=== PATIENT | female | born 1950 | race Asian ===

== ENCOUNTER 2023-02-23 18:28 | Inpatient (IN) | payer MEDICAID ==
[~2023-02-23] VITALS: Ht 154.9 cm; Wt 56.7 kg
[2023-02-23] MEDS ORDERED: levoFLOXacin 750MG/D5W 150 ML IV ONE ×2 (18:45→19:12)
[2023-02-23] MEDS ORDERED: IV NORMAL SALINE 500 ML BAG IV ONE (18:45)
[2023-02-23 19:01] LABS: BASOPHILS # (AUTO) 0.1 K/UL (0.0-0.2); BASOPHILS % (AUTO) 0.9 % (0.0-2.0); EOSINOPHILS # (AUTO) 0.1 K/uL (0.0-0.7); EOSINOPHILS % (AUTO) 0.6 % (0.0-7.0); HEMATOCRIT 42.3 % (31.2-41.9); HEMOGLOBIN 12.4 g/dL (10.9-14.3); LYMPHOCYTES # (AUTO) 3.8 K/uL (0.8-4.8); LYMPHOCYTES % (AUTO) 23.2 % (20.5-51.5); MEAN CORPUSCULAR HEMOGLOBIN 31.5 uug (24.7-32.8); MEAN CORPUSCULAR HGB CONC 29 g/dL (32.3-35.6); MEAN CORPUSCULAR VOLUME 107.3 fL (75.5-95.3); MONOCYTES # (AUTO) 0.7 K/uL (0.1-1.30); MONOCYTES % (AUTO) 4.1 % (0.0-11.0); NEUTROPHILS # (AUTO) 11.5 K/uL (1.8-8.9); NEUTROPHILS % (AUTO) 71.2 % (38.5-71.5); PLATELET COUNT (AUTO) 344 K/uL (179-408); RED BLOOD CELL COUNT(AUTO) 3.95 MIL/uL (3.63-4.92); RED CELL DISTRIBUTION WIDTH 19.5 % (12.3-17.7); WHITE BLOOD COUNT (AUTO) 16.2 K/uL (3.8-11.8)
[2023-02-23 19:07] LABS: DIFFERENTIAL COMMENT 1
[2023-02-23] MEDS ORDERED: IV NORMAL SALINE 1000 ML BAG IV ONE (19:15)
[2023-02-23 19:29] LABS: ALANINE AMINOTRANSFERASE 11 U/L (14-59); ALBUMIN 2.2 g/dL (3.4-5.0); ALKALINE PHOSPHATASE 161 U/L (50-136); ASPARTATE AMINOTRANSFERASE 16 U/L (15-37); BILIRUBIN,DIRECT 0.8 mg/dL (0.0-0.2); BILIRUBIN,TOTAL 1.1 mg/dL (0.2-1.0); CALCIUM 10.5 mg/dL (8.5-10.1); CHLORIDE 102 mmol/L (98-107); CREATININE 1.7 mg/dL (0.6-1.3); GLUCOSE 115 mg/dL (74-106); POTASSIUM 5.9 mmol/L (3.5-5.1); SODIUM SERUM 135 mmol/L (136-145); UREA NITROGEN, BLOOD 34 mg/dL (7-18)
[2023-02-23 19:39] LABS: CARBON DIOXIDE 10 mmol/L (21-32)
[2023-02-23] MEDS ORDERED: APIX2.5T GT (20:23)
[2023-02-23] MEDS ORDERED: MELA1TAB53 GT (20:23)
[2023-02-23] MEDS ORDERED: IPRA0.2S48 NEB (20:23)
[2023-02-23] MEDS ORDERED: DOCU100C36 GT (20:23)
[2023-02-23] MEDS ORDERED: ASCO500C18 GT (20:23)
[2023-02-23] MEDS ORDERED: MAGN400O6 GT (20:23)
[2023-02-23] MEDS ORDERED: CLOP75TA15 GT (20:23)
[2023-02-23] MEDS ORDERED: L. A1TAB16 GT (20:23)
[2023-02-23] MEDS ORDERED: PROP10TA10 GT ×2 (20:23)
[2023-02-23] MEDS ORDERED: POLY119P3 GT (20:23)
[2023-02-23] MEDS ORDERED: ENOX40DI SQ (20:23)
[2023-02-23] MEDS ORDERED: ZINC220T3 GT (20:23)
[2023-02-23] MEDS ORDERED: ATOR20TA GT (20:23)
[2023-02-23] MEDS ORDERED: IPRA0.2S6 NEB (20:23)
[2023-02-23] MEDS ORDERED: CEFE2VIA3 IV (20:23)
[2023-02-23] MEDS ORDERED: QUET50TA GT (20:23)
[2023-02-23] MEDS ORDERED: ACET-73 GT (20:23)
[2023-02-23] MEDS ORDERED: ACET-3117 GT (20:23)
[2023-02-23] MEDS ORDERED: TRAM50TA2 GT (20:23)
[2023-02-23] MEDS ORDERED: METH10TA80 GT (20:23)
[2023-02-23] MEDS ORDERED: ALBU2.5V13 IH ×2 (20:23)
[2023-02-23] MEDS ORDERED: ENOX60DI8 SQ (20:23)
[2023-02-23] MEDS ORDERED: CRAN450T9 GT (20:23)
[2023-02-23] MEDS ORDERED: ONDA4TAB5 GT (20:23)
[2023-02-23] MEDS ORDERED: POLY250017 GT (20:23)
[2023-02-23] MEDS ORDERED: METH10TA7 GT (20:23)
[2023-02-23 21:05] LABS: *BILIRUBIN,URIN NEGATIVE (NEGATIVE); *BLOOD, URINE 3+ (NEGATIVE); *COLOR,URINE YELLOW (YELLOW); *KETONES,URINE TRACE (NEGATIVE); *PROTEIN,URINE 2+ (NEGATIVE); *UROBILINOGEN,URINE 0.2 E.U./dl (NORMAL); LEUKOCYTE ESTERASE ,URINE 1+ (NEGATIVE); NITRITE, URINE POSITIVE (NEGATIVE); PH,URINE 6.5 (5.0-8.0); UGLUCOSE NEGATIVE (NEGATIVE)
[2023-02-23 21:07] LABS: *CLARITY,URINE HAZY (CLEAR)
[2023-02-23 21:29] LABS: ABG BASE EXCESS -17.4 mmol/L (-2.0-2.0); ABG HCO3 8.7 mmol/L (22.0-26.0); ABG PCO2 22.9 mmHg (35.0-48.0); ABG PH 7.199 (7.340-7.440); ABG SITE RIGHT RADIAL; ABG TOTAL HEMOGLOBIN 13.3 G/dL (12.0-16.0); AaDO2 99.8 mmHg; MetHb 0.3 % (0.0-1.5); O2Hb 99.4 % (94.0-97.0); VT, ABG 400 mL
[2023-02-23 21:55] LABS: RBC,URINE TNTC /HPF (0-3); WBC,URINE 50-80 /HPF (0-3)
[2023-02-23 21:56] LABS: BACTERIA,URINE MANY /HPF (NONE SEEN); SQUAMOUS EPITHELIAL CELL,UR FEW /HPF (NONE SEEN)
[2023-02-23] MEDS ORDERED: ALBUTEROL SULFATE 2.5 MG/ 0.5 ML NEBU IH PRN (22:30)
[2023-02-23] MEDS ORDERED: ENOXAPARIN SODIUM 60 MG/0.6 ML DISP.SYRIN SQ ONE ×2 (23:15→23:16)
[2023-02-24] VITALS (17 sets, daily range): BP systolic 75–125; BP diastolic 47–88; TEMP 97.3–98.7; O2SAT 92–98
[2023-02-24] MEDS ORDERED: ALBUTEROL SULFATE 2.5 MG/ 0.5 ML NEBU IH SCH
[2023-02-24] MEDS ORDERED: IPRATROPIUM BROMIDE 0.5 MG/2.5 ML NEBU NEB SCH
[2023-02-24] MEDS ORDERED: MIRALAX 17 GM POWD.PACK GT PRN (02:30)
[2023-02-24] MEDS: ONDANSETRON 4 MG/2 ML VIAL IV PRN (02:32)
[2023-02-24] MEDS: MORPHINE SULFATE 2 MG/1 ML DISP.SYRIN IV PRN (02:40)
[2023-02-24] MEDS ORDERED: PIPERACILLIN SODIUM/TAZOBACTAM 3.375 G in IV DEXTROSE 5% 50 ML IV ONE (03:00)
[2023-02-24] MEDS ORDERED: VANCOMYCIN IV 200 ML ONE (03:04)
[2023-02-24] MEDS ORDERED: VANCOMYCIN HCL 500 MG VIAL ONE (03:04)
[2023-02-24] MEDS ORDERED: PIPERACILLIN/TAZOBACTAM/D5W 50 ML IV ONE (03:05)
[2023-02-24] MEDS ORDERED: VANCOMYCIN IV 1,250 MG in IV DEXTROSE 5% 250 ML IV ONE (03:30)
[2023-02-24 05:14] LABS: BASOPHILS % (AUTO) 0.2 % (0.0-2.0); HEMATOCRIT 36.7 % (31.2-41.9); HEMOGLOBIN 11.5 g/dL (10.9-14.3); LYMPHOCYTES # (AUTO) 0.6 K/uL (0.8-4.8); LYMPHOCYTES % (AUTO) 2.9 % (20.5-51.5); MEAN CORPUSCULAR HEMOGLOBIN 31.7 uug (24.7-32.8); MEAN CORPUSCULAR HGB CONC 31 g/dL (32.3-35.6); MEAN CORPUSCULAR VOLUME 101.3 fL (75.5-95.3); MONOCYTES # (AUTO) 0.8 K/uL (0.1-1.30); MONOCYTES % (AUTO) 4.1 % (0.0-11.0); NEUTROPHILS # (AUTO) 19.3 K/uL (1.8-8.9); NEUTROPHILS % (AUTO) 92.8 % (38.5-71.5); PLATELET COUNT (AUTO) 255 K/uL (179-408); RED BLOOD CELL COUNT(AUTO) 3.62 MIL/uL (3.63-4.92); RED CELL DISTRIBUTION WIDTH 18.7 % (12.3-17.7); WHITE BLOOD COUNT (AUTO) 20.8 K/uL (3.8-11.8)
[2023-02-24 05:35] LABS: DIFFERENTIAL COMMENT 1
[2023-02-24 05:44] LABS: ALANINE AMINOTRANSFERASE 73 U/L (14-59); ALBUMIN 1.9 g/dL (3.4-5.0); ALKALINE PHOSPHATASE 147 U/L (50-136); ASPARTATE AMINOTRANSFERASE 185 U/L (15-37); BILIRUBIN,TOTAL 1.5 mg/dL (0.2-1.0); CALCIUM 9.1 mg/dL (8.5-10.1); CARBON DIOXIDE 14 mmol/L (21-32); CHLORIDE 104 mmol/L (98-107); CHOLESTEROL 125 mg/dL (<200); CREATININE 1.8 mg/dL (0.6-1.3); GLUCOSE 99 mg/dL (74-106); HDL CHOLESTEROL 24 mg/dL (40-60); MAGNESIUM 2.6 mg/dL (1.8-2.4); PHOSPHOROUS 6.8 mg/dL (2.5-4.9); POTASSIUM 4.8 mmol/L (3.5-5.1); SODIUM SERUM 135 mmol/L (136-145); TOTAL PROTEIN, SERUM 6.7 g/dL (6.4-8.2); TRIGLYCERIDES 102 MG/DL (30-150); UREA NITROGEN, BLOOD 42 mg/dL (7-18)
[2023-02-24 05:46] LABS: THYROID STIMULATING HORMONE 0.744 mIU/mL (0.358-3.740)
[2023-02-24] MEDS ORDERED: PIPERACILLIN SODIUM/TAZOBACTAM 3.375 G in IV DEXTROSE 5% 50 ML IV SCH (06:00)
[2023-02-24] MEDS: IPRATROPIUM BROMIDE 0.5 MG/2.5 ML NEBU NEB SCH ×3 (07:35→20:05)
[2023-02-24] MEDS: ALBUTEROL SULFATE 2.5 MG/ 0.5 ML NEBU IH SCH ×3 (07:35→20:05)
[2023-02-24 08:50] LABS: AMMONIA < 10 umol/L (11-32)
[2023-02-24 09:06] LABS: ACETONE, SERUM NEGATIVE (NEGATIVE)
[2023-02-24] MEDS: CLOPIDOGREL 75 MG TABLET GT SCH (09:43)
[2023-02-24] MEDS: ZINC SULFATE 220 MG CAPSULE GT SCH (09:44)
[2023-02-24] MEDS: ACIDOPHILUS/BULGARICUS CHEW TAB GT SCH ×2 (09:44→16:56)
[2023-02-24] MEDS: ASCORBIC ACID 500 MG TABLET GT SCH (09:44)
[2023-02-24] MEDS: PANTOPRAZOLE SODIUM 40 MG VIAL IV SCH (09:45)
[2023-02-24] MEDS: APIXABAN 2.5 MG TABLET GT SCH ×2 (09:46→16:56)
[2023-02-24 10:21] LABS: ABG BASE EXCESS -4.6 mmol/L (-2.0-2.0); ABG HCO3 17.9 mmol/L (22.0-26.0); ABG PCO2 26.1 mmHg (35.0-48.0); ABG PH 7.454 (7.340-7.440); ABG PO2 282.4 mmHg (75.0-100.0); ABG SITE RIGHT RADIAL; ABG TOTAL HEMOGLOBIN 12.4 G/dL (12.0-16.0); AaDO2 99.7 mmHg; COHb 0.3 % (0.0-3.9); MetHb 0.2 % (0.0-1.5); O2Hb 99.4 % (94.0-97.0); VT, ABG 400 mL
[2023-02-24] MEDS: CEFEPIME HCL 2 G in IV DEXTROSE 5% 100 ML IV SCH (10:21)
[2023-02-24] MEDS: METHIMAZOLE 5 MG TABLET GT SCH ×2 (14:00→21:32)
[2023-02-24] MEDS: IV LACTATED RINGERS SOLUTION 1,000 ML IV PRN (17:06)
[2023-02-24] MEDS: QUETIAPINE FUMARATE 25 MG TABLET GT SCH (21:31)
[2023-02-24] MEDS: ATORVASTATIN 20 MG TABLET GT SCH (21:32)
[2023-02-24] MEDS: MELATONIN 3 MG TABLET GT SCH (21:32)
[2023-02-25] VITALS (24 sets, daily range): BP systolic 86–118; BP diastolic 48–70; TEMP 97.2–98.6; O2SAT 98–100
[2023-02-25] MEDS: ALBUTEROL SULFATE 2.5 MG/ 0.5 ML NEBU IH SCH ×4 (01:11→19:45)
[2023-02-25] MEDS: IPRATROPIUM BROMIDE 0.5 MG/2.5 ML NEBU NEB SCH ×4 (01:11→19:45)
[2023-02-25 05:13] LABS: BASOPHILS # (AUTO) 0.1 K/UL (0.0-0.2); BASOPHILS % (AUTO) 0.5 % (0.0-2.0); EOSINOPHILS % (AUTO) 0.1 % (0.0-7.0); HEMATOCRIT 30.8 % (31.2-41.9); HEMOGLOBIN 9.9 g/dL (10.9-14.3); LYMPHOCYTES % (AUTO) 6.9 % (20.5-51.5); MEAN CORPUSCULAR HEMOGLOBIN 31.6 uug (24.7-32.8); MEAN CORPUSCULAR HGB CONC 32 g/dL (32.3-35.6); MEAN CORPUSCULAR VOLUME 98.5 fL (75.5-95.3); MONOCYTES # (AUTO) 0.7 K/uL (0.1-1.30); MONOCYTES % (AUTO) 5.3 % (0.0-11.0); NEUTROPHILS # (AUTO) 12.1 K/uL (1.8-8.9); NEUTROPHILS % (AUTO) 87.2 % (38.5-71.5); PLATELET COUNT (AUTO) 194 K/uL (179-408); RED BLOOD CELL COUNT(AUTO) 3.13 MIL/uL (3.63-4.92); RED CELL DISTRIBUTION WIDTH 18.3 % (12.3-17.7); WHITE BLOOD COUNT (AUTO) 13.9 K/uL (3.8-11.8)
[2023-02-25 05:31] LABS: DIFFERENTIAL COMMENT 1
[2023-02-25 05:38] LABS: CALCIUM 9.1 mg/dL (8.5-10.1); CARBON DIOXIDE 19 mmol/L (21-32); CHLORIDE 107 mmol/L (98-107); CREATININE 1.8 mg/dL (0.6-1.3); GLUCOSE 54 mg/dL (74-106); MAGNESIUM 2.3 mg/dL (1.8-2.4); PHOSPHOROUS 3.8 mg/dL (2.5-4.9); POTASSIUM 3.7 mmol/L (3.5-5.1); SODIUM SERUM 138 mmol/L (136-145); UREA NITROGEN, BLOOD 46 mg/dL (7-18); VANCOMYCIN,RANDOM 22.6 ug/mL (20.0-30.0)
[2023-02-25] MEDS: IV LACTATED RINGERS SOLUTION 1,000 ML IV PRN (06:15)
[2023-02-25] MEDS: METHIMAZOLE 5 MG TABLET GT SCH ×3 (06:22→22:42)
[2023-02-25 07:33] LABS: ABG BASE EXCESS -4.8 mmol/L (-2.0-2.0); ABG HCO3 18.2 mmol/L (22.0-26.0); ABG PCO2 27.6 mmHg (35.0-48.0); ABG PH 7.438 (7.340-7.440); ABG SITE RIGHT RADIAL; ABG TOTAL HEMOGLOBIN 11.1 G/dL (12.0-16.0); AaDO2 99.5 mmHg; COHb 0.3 % (0.0-3.9); MetHb 0.3 % (0.0-1.5); O2Hb 98.7 % (94.0-97.0); VT, ABG 400 mL
[2023-02-25] MEDS: CEFEPIME HCL 2 G in IV DEXTROSE 5% 100 ML IV SCH (09:03)
[2023-02-25] MEDS: CLOPIDOGREL 75 MG TABLET GT SCH (09:03)
[2023-02-25] MEDS: PANTOPRAZOLE SODIUM 40 MG VIAL IV SCH (09:03)
[2023-02-25] MEDS: ASCORBIC ACID 500 MG TABLET GT SCH (09:03)
[2023-02-25] MEDS: ZINC SULFATE 220 MG CAPSULE GT SCH (09:03)
[2023-02-25] MEDS: ACIDOPHILUS/BULGARICUS CHEW TAB GT SCH ×2 (09:03→17:04)
[2023-02-25] MEDS: APIXABAN 2.5 MG TABLET GT SCH (09:05)
[2023-02-25 11:48] LABS: ALBUMIN 1.6 g/dL (3.4-5.0); BILIRUBIN,DIRECT 0.5 mg/dL (0.0-0.2); BILIRUBIN,TOTAL 0.8 mg/dL (0.2-1.0); TOTAL PROTEIN, SERUM 5.7 g/dL (6.4-8.2)
[2023-02-25] MEDS: VANCOMYCIN IV 1,000 MG in IV DEXTROSE 5% 250 ML IV SCH (12:20)
[2023-02-25] MEDS ORDERED: NEPRO 1000 ML GT PRN (16:30)
[2023-02-25] MEDS ORDERED: JEVITY 1.2 1000 ML LIQUID GT PRN ×2 (18:15→18:21)
[2023-02-25] MEDS: MELATONIN 3 MG TABLET GT SCH (20:45)
[2023-02-25] MEDS: QUETIAPINE FUMARATE 25 MG TABLET GT SCH (20:46)
[2023-02-25] MEDS: ATORVASTATIN 20 MG TABLET GT SCH (20:49)
[2023-02-26] VITALS (26 sets, daily range): BP systolic 47–119; BP diastolic 25–78; TEMP 97.5–98.6; O2SAT 77–100
[2023-02-26] MEDS: ALBUTEROL SULFATE 2.5 MG/ 0.5 ML NEBU IH SCH ×4 (01:11→20:10)
[2023-02-26] MEDS: IPRATROPIUM BROMIDE 0.5 MG/2.5 ML NEBU NEB SCH ×4 (01:11→20:10)
[2023-02-26 04:57] LABS: BASOPHILS % (AUTO) 0.4 % (0.0-2.0); EOSINOPHILS # (AUTO) 0.1 K/uL (0.0-0.7); EOSINOPHILS % (AUTO) 0.9 % (0.0-7.0); HEMATOCRIT 31.4 % (31.2-41.9); HEMOGLOBIN 10.2 g/dL (10.9-14.3); LYMPHOCYTES # (AUTO) 0.9 K/uL (0.8-4.8); LYMPHOCYTES % (AUTO) 10.8 % (20.5-51.5); MEAN CORPUSCULAR HEMOGLOBIN 32.3 uug (24.7-32.8); MEAN CORPUSCULAR HGB CONC 33 g/dL (32.3-35.6); MEAN CORPUSCULAR VOLUME 99.2 fL (75.5-95.3); MONOCYTES # (AUTO) 0.8 K/uL (0.1-1.30); MONOCYTES % (AUTO) 9.2 % (0.0-11.0); NEUTROPHILS # (AUTO) 6.4 K/uL (1.8-8.9); NEUTROPHILS % (AUTO) 78.7 % (38.5-71.5); PLATELET COUNT (AUTO) 173 K/uL (179-408); RED BLOOD CELL COUNT(AUTO) 3.16 MIL/uL (3.63-4.92); RED CELL DISTRIBUTION WIDTH 18.8 % (12.3-17.7); WHITE BLOOD COUNT (AUTO) 8.2 K/uL (3.8-11.8)
[2023-02-26 05:21] LABS: ALANINE AMINOTRANSFERASE 127 U/L (14-59); ALBUMIN 1.6 g/dL (3.4-5.0); ALKALINE PHOSPHATASE 103 U/L (50-136); ASPARTATE AMINOTRANSFERASE 78 U/L (15-37); BILIRUBIN,DIRECT 0.5 mg/dL (0.0-0.2); BILIRUBIN,TOTAL 0.9 mg/dL (0.2-1.0); CALCIUM 8.8 mg/dL (8.5-10.1); CARBON DIOXIDE 22 mmol/L (21-32); CHLORIDE 109 mmol/L (98-107); CREATININE 1.8 mg/dL (0.6-1.3); DIFFERENTIAL COMMENT 1; GLUCOSE 79 mg/dL (74-106); MAGNESIUM 2.4 mg/dL (1.8-2.4); PHOSPHOROUS 2.7 mg/dL (2.5-4.9); POTASSIUM 3.3 mmol/L (3.5-5.1); SODIUM SERUM 140 mmol/L (136-145); TOTAL PROTEIN, SERUM 5.8 g/dL (6.4-8.2); UREA NITROGEN, BLOOD 41 mg/dL (7-18)
[2023-02-26] MEDS ORDERED: POTASSIUM CHLORIDE 20 MEQ POWDER PACKET GT ONE (06:00)
[2023-02-26] MEDS: METHIMAZOLE 5 MG TABLET GT SCH ×3 (06:21→21:03)
[2023-02-26 07:09] LABS: ABG BASE EXCESS -7.6 mmol/L (-2.0-2.0); ABG HCO3 16.2 mmol/L (22.0-26.0); ABG PCO2 27.9 mmHg (35.0-48.0); ABG PH 7.382 (7.340-7.440); ABG PO2 232.5 mmHg (75.0-100.0); ABG SITE RIGHT RADIAL; ABG TOTAL HEMOGLOBIN 11.7 G/dL (12.0-16.0); AaDO2 99.5 mmHg; COHb 0.3 % (0.0-3.9); MetHb 0.1 % (0.0-1.5); O2Hb 99.1 % (94.0-97.0); VT, ABG 400 mL
[2023-02-26] MEDS: ASCORBIC ACID 500 MG TABLET GT SCH (09:00)
[2023-02-26] MEDS: ACIDOPHILUS/BULGARICUS CHEW TAB GT SCH ×2 (09:00→17:06)
[2023-02-26] MEDS: CLOPIDOGREL 75 MG TABLET GT SCH (09:00)
[2023-02-26] MEDS: ZINC SULFATE 220 MG CAPSULE GT SCH (09:00)
[2023-02-26] MEDS ORDERED: LORAZEPAM 2 MG/1 ML VIAL IV STA (09:02)
[2023-02-26] MEDS: PANTOPRAZOLE SODIUM 40 MG VIAL IV SCH (13:19)
[2023-02-26] MEDS: CEFEPIME HCL 2 G in IV DEXTROSE 5% 100 ML IV SCH (13:19)
[2023-02-26] MEDS: MICAFUNGIN SODIUM 100 MG in IV NORMAL SALINE 100 ML IV SCH (16:36)
[2023-02-26 17:36] LABS: ALBUMIN 1.6 g/dL (3.4-5.0); ALBUMIN,BODY FLUID 1.1 g/dL
[2023-02-26 17:46] LABS: TOTAL PROTEIN,PERITONEAL FLUID 3.5
[2023-02-26] MEDS ORDERED: IV NS 1000 ML 500 ML IV PRN (19:30)
[2023-02-26] MEDS ORDERED: AMIODARONE HCL IV 450 MG in IV DEXTROSE 5% 250 ML IV PRN ×2 (19:30→19:45)
[2023-02-26] MEDS ORDERED: ALBUMIN HUMAN 25% 50 ML IV ONE (19:30)
[2023-02-26 19:46] LABS: TOTAL VOLUME,BODY FLUID 15 mL; WBC, BODY FLUID 271 /cu. mm (0-200/cu.mm)
[2023-02-26] MEDS: ACETAMINOPHEN 650 MG/20.3 ML LIQUID UDC GT PRN (21:03)
[2023-02-26] MEDS: ATORVASTATIN 20 MG TABLET GT SCH (21:04)
[2023-02-26] MEDS: QUETIAPINE FUMARATE 25 MG TABLET GT SCH (21:04)
[2023-02-26] MEDS: MELATONIN 3 MG TABLET GT SCH (21:04)
[2023-02-26] MEDS: VANCOMYCIN IV 1,000 MG in IV DEXTROSE 5% 250 ML IV SCH (21:05)
[2023-02-27] VITALS (46 sets, daily range): BP systolic 66–141; BP diastolic 40–92; TEMP 97.5–99.3; O2SAT 96–100
[2023-02-27] MEDS ORDERED: NOREPINEPHRINE BITARTRATE 8 MG in IV NORMAL SALINE 242 ML IV PRN (00:30)
[2023-02-27 00:33] LABS: MONOCYTES,BODY FLUID 10 %; POLYNUCLEAR, BODY FLUID 19 % (0-25 %)
[2023-02-27] MEDS: IPRATROPIUM BROMIDE 0.5 MG/2.5 ML NEBU NEB SCH ×4 (00:49→20:42)
[2023-02-27] MEDS: ALBUTEROL SULFATE 2.5 MG/ 0.5 ML NEBU IH SCH ×4 (00:49→20:42)
[2023-02-27] MEDS: NOREPINEPHRINE BITARTRATE 8 MG in IV NORMAL SALINE 242 ML IV PRN ×2 (01:08→22:41)
[2023-02-27 04:48] LABS: BASOPHILS % (AUTO) 0.1 % (0.0-2.0)
[2023-02-27 04:49] LABS: EOSINOPHILS % (AUTO) 0.2 % (0.0-7.0); LYMPHOCYTES # (AUTO) 1.1 K/uL (0.8-4.8); MEAN CORPUSCULAR HEMOGLOBIN 32.1 uug (24.7-32.8); MEAN CORPUSCULAR HGB CONC 32 g/dL (32.3-35.6); MEAN CORPUSCULAR VOLUME 100.3 fL (75.5-95.3); MONOCYTES # (AUTO) 1.2 K/uL (0.1-1.30); MONOCYTES % (AUTO) 8.1 % (0.0-11.0); NEUTROPHILS % (AUTO) 83.6 % (38.5-71.5); PLATELET COUNT (AUTO) 181 K/uL (179-408); RED CELL DISTRIBUTION WIDTH 18.8 % (12.3-17.7); WHITE BLOOD COUNT (AUTO) 14.3 K/uL (3.8-11.8)
[2023-02-27 05:11] LABS: ALANINE AMINOTRANSFERASE 100 U/L (14-59); ALBUMIN 2.1 g/dL (3.4-5.0); ALKALINE PHOSPHATASE 88 U/L (50-136); ASPARTATE AMINOTRANSFERASE 60 U/L (15-37); BILIRUBIN,DIRECT 0.6 mg/dL (0.0-0.2); BILIRUBIN,TOTAL 1.2 mg/dL (0.2-1.0); CALCIUM 8.3 mg/dL (8.5-10.1); CARBON DIOXIDE 19 mmol/L (21-32); CHLORIDE 111 mmol/L (98-107); CREATININE 1.7 mg/dL (0.6-1.3); GLUCOSE 171 mg/dL (74-106); MAGNESIUM 2.3 mg/dL (1.8-2.4); PHOSPHOROUS 2.4 mg/dL (2.5-4.9); POTASSIUM 3.6 mmol/L (3.5-5.1); SODIUM SERUM 139 mmol/L (136-145); TOTAL PROTEIN, SERUM 5.1 g/dL (6.4-8.2); UREA NITROGEN, BLOOD 35 mg/dL (7-18)
[2023-02-27 05:16] LABS: RED BLOOD CELL COUNT(AUTO) 1.91 MIL/uL (3.63-4.92)
[2023-02-27 05:21] LABS: DIFFERENTIAL COMMENT 1; HEMATOCRIT 19.2 % (31.2-41.9); HEMOGLOBIN 6.1 g/dL (10.9-14.3)
[2023-02-27] MEDS: METHIMAZOLE 5 MG TABLET GT SCH ×3 (06:15→21:23)
[2023-02-27 08:06] LABS: HEMATOCRIT 18.4 % (31.2-41.9); HEMOGLOBIN 5.8 g/dL (10.9-14.3)
[2023-02-27] MEDS: PANTOPRAZOLE SODIUM 40 MG VIAL IV SCH (08:14)
[2023-02-27] MEDS: ASCORBIC ACID 500 MG TABLET GT SCH (08:15)
[2023-02-27] MEDS: ZINC SULFATE 220 MG CAPSULE GT SCH (08:15)
[2023-02-27] MEDS: ACIDOPHILUS/BULGARICUS CHEW TAB GT SCH ×2 (08:21→16:47)
[2023-02-27] MEDS: CEFEPIME HCL 2 G in IV DEXTROSE 5% 100 ML IV SCH (10:00)
[2023-02-27] MEDS ORDERED: NEUTRA PHOS PACKET PO ONE (16:00)
[2023-02-27 16:10] LABS: BASOPHILS # (AUTO) 0.1 K/UL (0.0-0.2); BASOPHILS % (AUTO) 0.5 % (0.0-2.0); EOSINOPHILS # (AUTO) 0.1 K/uL (0.0-0.7); HEMATOCRIT 28.7 % (31.2-41.9); HEMOGLOBIN 9.3 g/dL (10.9-14.3); LYMPHOCYTES # (AUTO) 1.4 K/uL (0.8-4.8); LYMPHOCYTES % (AUTO) 11.2 % (20.5-51.5); MEAN CORPUSCULAR HEMOGLOBIN 30.9 uug (24.7-32.8); MEAN CORPUSCULAR HGB CONC 33 g/dL (32.3-35.6); MONOCYTES # (AUTO) 1.5 K/uL (0.1-1.30); NEUTROPHILS # (AUTO) 9.2 K/uL (1.8-8.9); NEUTROPHILS % (AUTO) 75.3 % (38.5-71.5); PLATELET COUNT (AUTO) 170 K/uL (179-408); RED BLOOD CELL COUNT(AUTO) 3.02 MIL/uL (3.63-4.92); RED CELL DISTRIBUTION WIDTH 17.3 % (12.3-17.7); WHITE BLOOD COUNT (AUTO) 12.2 K/uL (3.8-11.8)
[2023-02-27 16:24] LABS: CALCIUM 8.4 mg/dL (8.5-10.1); CARBON DIOXIDE 18 mmol/L (21-32); CHLORIDE 112 mmol/L (98-107); CREATININE 1.6 mg/dL (0.6-1.3); GLUCOSE 167 mg/dL (74-106); POTASSIUM 3.6 mmol/L (3.5-5.1); SODIUM SERUM 141 mmol/L (136-145); UREA NITROGEN, BLOOD 32 mg/dL (7-18)
[2023-02-27 16:42] LABS: DIFFERENTIAL COMMENT 1
[2023-02-27] MEDS: MICAFUNGIN SODIUM 100 MG in IV NORMAL SALINE 100 ML IV SCH (16:42)
[2023-02-27 20:17] LABS: BASOPHILS # (AUTO) 0.1 K/UL (0.0-0.2); BASOPHILS % (AUTO) 0.5 % (0.0-2.0); EOSINOPHILS # (AUTO) 0.1 K/uL (0.0-0.7); EOSINOPHILS % (AUTO) 1.1 % (0.0-7.0); HEMATOCRIT 27.7 % (31.2-41.9); LYMPHOCYTES # (AUTO) 1.4 K/uL (0.8-4.8); LYMPHOCYTES % (AUTO) 12.2 % (20.5-51.5); MEAN CORPUSCULAR HEMOGLOBIN 30.7 uug (24.7-32.8); MEAN CORPUSCULAR HGB CONC 33 g/dL (32.3-35.6); MEAN CORPUSCULAR VOLUME 94.5 fL (75.5-95.3); MONOCYTES # (AUTO) 1.3 K/uL (0.1-1.30); MONOCYTES % (AUTO) 11.6 % (0.0-11.0); NEUTROPHILS # (AUTO) 8.4 K/uL (1.8-8.9); NEUTROPHILS % (AUTO) 74.6 % (38.5-71.5); PLATELET COUNT (AUTO) 161 K/uL (179-408); RED BLOOD CELL COUNT(AUTO) 2.94 MIL/uL (3.63-4.92); RED CELL DISTRIBUTION WIDTH 17.5 % (12.3-17.7); WHITE BLOOD COUNT (AUTO) 11.3 K/uL (3.8-11.8)
[2023-02-27 20:32] LABS: DIFFERENTIAL COMMENT 1
[2023-02-27] MEDS ORDERED: PHYTONADIONE 10 MG/1 ML AMPUL SQ ONE (20:45)
[2023-02-27] MEDS: ACETAMINOPHEN 650 MG/20.3 ML LIQUID UDC GT PRN (20:54)
[2023-02-27] MEDS: ATORVASTATIN 20 MG TABLET GT SCH (20:54)
[2023-02-27] MEDS: QUETIAPINE FUMARATE 25 MG TABLET GT SCH (20:54)
[2023-02-27] MEDS: MELATONIN 3 MG TABLET GT SCH (20:55)
[2023-02-28] VITALS (36 sets, daily range): BP systolic 87–136; BP diastolic 25–101; TEMP 97.3–99.4; O2SAT 99–100
[2023-02-28 00:50] LABS: HEMATOCRIT 25.3 % (31.2-41.9); HEMOGLOBIN 8.3 g/dL (10.9-14.3)
[2023-02-28] MEDS: IPRATROPIUM BROMIDE 0.5 MG/2.5 ML NEBU NEB SCH ×4 (01:18→21:17)
[2023-02-28] MEDS: ALBUTEROL SULFATE 2.5 MG/ 0.5 ML NEBU IH SCH ×4 (01:19→21:17)
[2023-02-28] MEDS: METHIMAZOLE 5 MG TABLET GT SCH ×3 (06:11→21:47)
[2023-02-28 06:51] LABS: BASOPHILS % (AUTO) 0.3 % (0.0-2.0); EOSINOPHILS # (AUTO) 0.1 K/uL (0.0-0.7); EOSINOPHILS % (AUTO) 1.7 % (0.0-7.0); HEMATOCRIT 25.8 % (31.2-41.9); HEMOGLOBIN 8.6 g/dL (10.9-14.3); LYMPHOCYTES # (AUTO) 1.3 K/uL (0.8-4.8); LYMPHOCYTES % (AUTO) 15.3 % (20.5-51.5); MEAN CORPUSCULAR HGB CONC 33 g/dL (32.3-35.6); MEAN CORPUSCULAR VOLUME 96.2 fL (75.5-95.3); MONOCYTES # (AUTO) 1.1 K/uL (0.1-1.30); NEUTROPHILS # (AUTO) 5.8 K/uL (1.8-8.9); NEUTROPHILS % (AUTO) 69.7 % (38.5-71.5); PLATELET COUNT (AUTO) 138 K/uL (179-408); RED BLOOD CELL COUNT(AUTO) 2.68 MIL/uL (3.63-4.92); WHITE BLOOD COUNT (AUTO) 8.4 K/uL (3.8-11.8)
[2023-02-28 07:19] LABS: DIFFERENTIAL COMMENT 1
[2023-02-28 07:31] LABS: ALANINE AMINOTRANSFERASE 82 U/L (14-59); ALKALINE PHOSPHATASE 97 U/L (50-136); ASPARTATE AMINOTRANSFERASE 29 U/L (15-37); BILIRUBIN,DIRECT 0.6 mg/dL (0.0-0.2); BILIRUBIN,TOTAL 1.2 mg/dL (0.2-1.0); CALCIUM 8.6 mg/dL (8.5-10.1); CARBON DIOXIDE 18 mmol/L (21-32); CHLORIDE 113 mmol/L (98-107); CREATININE 1.4 mg/dL (0.6-1.3); GLUCOSE 104 mg/dL (74-106); MAGNESIUM 2.3 mg/dL (1.8-2.4); PHOSPHOROUS 2.7 mg/dL (2.5-4.9); POTASSIUM 3.4 mmol/L (3.5-5.1); SODIUM SERUM 143 mmol/L (136-145); TOTAL PROTEIN, SERUM 5.6 g/dL (6.4-8.2); UREA NITROGEN, BLOOD 27 mg/dL (7-18)
[2023-02-28] MEDS: ACIDOPHILUS/BULGARICUS CHEW TAB GT SCH ×2 (08:35→16:15)
[2023-02-28] MEDS: ZINC SULFATE 220 MG CAPSULE GT SCH (08:35)
[2023-02-28] MEDS: PANTOPRAZOLE ORAL SUSPENSION 40 MG SUSPDR.PKT GT SCH (08:35)
[2023-02-28] MEDS: ASCORBIC ACID 500 MG TABLET GT SCH (08:35)
[2023-02-28 10:40] LABS: HEMOGLOBIN 7.9 g/dL (10.9-14.3)
[2023-02-28] MEDS: CEFEPIME HCL 2 G in IV DEXTROSE 5% 100 ML IV SCH (11:23)
[2023-02-28 13:38] LABS: HEMATOCRIT 23.6 % (31.2-41.9); HEMOGLOBIN 7.8 g/dL (10.9-14.3)
[2023-02-28] MEDS ORDERED: POTASSIUM CHLORIDE 20 MEQ POWDER PACKET GT ONE (14:00)
[2023-02-28] MEDS: MICAFUNGIN SODIUM 100 MG in IV NORMAL SALINE 100 ML IV SCH (16:12)
[2023-02-28 17:37] LABS: HEMATOCRIT 24.9 % (31.2-41.9); HEMOGLOBIN 8.2 g/dL (10.9-14.3)
[2023-02-28] MEDS: MELATONIN 3 MG TABLET GT SCH (21:46)
[2023-02-28] MEDS: QUETIAPINE FUMARATE 25 MG TABLET GT SCH (21:46)
[2023-02-28] MEDS: ATORVASTATIN 20 MG TABLET GT SCH (21:47)
[2023-03-01] VITALS (24 sets, daily range): BP systolic 97–124; BP diastolic 42–67; TEMP 97.5–98.9; O2SAT 97–100
[2023-03-01] MEDS: IPRATROPIUM BROMIDE 0.5 MG/2.5 ML NEBU NEB SCH ×4 (02:05→21:26)
[2023-03-01] MEDS: ALBUTEROL SULFATE 2.5 MG/ 0.5 ML NEBU IH SCH ×4 (02:05→21:27)
[2023-03-01 05:12] LABS: BASOPHILS % (AUTO) 0.5 % (0.0-2.0); EOSINOPHILS # (AUTO) 0.1 K/uL (0.0-0.7); EOSINOPHILS % (AUTO) 1.4 % (0.0-7.0); HEMATOCRIT 25.8 % (31.2-41.9); HEMOGLOBIN 8.5 g/dL (10.9-14.3); LYMPHOCYTES # (AUTO) 0.8 K/uL (0.8-4.8); LYMPHOCYTES % (AUTO) 13.5 % (20.5-51.5); MEAN CORPUSCULAR HEMOGLOBIN 31.7 uug (24.7-32.8); MEAN CORPUSCULAR HGB CONC 33 g/dL (32.3-35.6); MEAN CORPUSCULAR VOLUME 96.1 fL (75.5-95.3); MONOCYTES # (AUTO) 0.6 K/uL (0.1-1.30); MONOCYTES % (AUTO) 10.2 % (0.0-11.0); NEUTROPHILS # (AUTO) 4.3 K/uL (1.8-8.9); NEUTROPHILS % (AUTO) 74.4 % (38.5-71.5); PLATELET COUNT (AUTO) 110 K/uL (179-408); RED BLOOD CELL COUNT(AUTO) 2.68 MIL/uL (3.63-4.92); RED CELL DISTRIBUTION WIDTH 17.9 % (12.3-17.7); WHITE BLOOD COUNT (AUTO) 5.8 K/uL (3.8-11.8)
[2023-03-01 05:17] LABS: DIFFERENTIAL COMMENT 1
[2023-03-01 05:26] LABS: CALCIUM 8.8 mg/dL (8.5-10.1); CARBON DIOXIDE 18 mmol/L (21-32); CHLORIDE 116 mmol/L (98-107); CREATININE 1.2 mg/dL (0.6-1.3); GLUCOSE 66 mg/dL (74-106); MAGNESIUM 2.1 mg/dL (1.8-2.4); PHOSPHOROUS 2.5 mg/dL (2.5-4.9); POTASSIUM 3.7 mmol/L (3.5-5.1); SODIUM SERUM 145 mmol/L (136-145); UREA NITROGEN, BLOOD 20 mg/dL (7-18)
[2023-03-01] MEDS: METHIMAZOLE 5 MG TABLET GT SCH ×3 (06:32→21:38)
[2023-03-01 06:33] LABS: ABG BASE EXCESS -7.3 mmol/L (-2.0-2.0); ABG PCO2 25.7 mmHg (35.0-48.0); ABG PH 7.413 (7.340-7.440); ABG PO2 126.1 mmHg (75.0-100.0); ABG TOTAL HEMOGLOBIN 9.7 G/dL (12.0-16.0); AaDO2 98.6 mmHg; COHb 0.3 % (0.0-3.9); MetHb 0.3 % (0.0-1.5); O2Hb 97.8 % (94.0-97.0); VT, ABG 400 mL
[2023-03-01] MEDS: ACIDOPHILUS/BULGARICUS CHEW TAB GT SCH ×2 (08:53→16:33)
[2023-03-01] MEDS: ASCORBIC ACID 500 MG TABLET GT SCH (08:53)
[2023-03-01] MEDS: ZINC SULFATE 220 MG CAPSULE GT SCH (08:53)
[2023-03-01] MEDS: PANTOPRAZOLE ORAL SUSPENSION 40 MG SUSPDR.PKT GT SCH (08:54)
[2023-03-01] MEDS: CEFEPIME HCL 2 G in IV DEXTROSE 5% 100 ML IV SCH (09:19)
[2023-03-01] MEDS: MICAFUNGIN SODIUM 100 MG in IV NORMAL SALINE 100 ML IV SCH (15:01)
[2023-03-01] MEDS: ATORVASTATIN 20 MG TABLET GT SCH (21:38)
[2023-03-01] MEDS: QUETIAPINE FUMARATE 25 MG TABLET GT SCH (21:39)
[2023-03-01] MEDS: MELATONIN 3 MG TABLET GT SCH (21:39)
[2023-03-02] VITALS (23 sets, daily range): BP systolic 107–123; BP diastolic 47–79; TEMP 97.4–98.4; O2SAT 100
[2023-03-02] MEDS: IPRATROPIUM BROMIDE 0.5 MG/2.5 ML NEBU NEB SCH ×4 (00:22→19:51)
[2023-03-02] MEDS: ALBUTEROL SULFATE 2.5 MG/ 0.5 ML NEBU IH SCH ×4 (00:22→19:51)
[2023-03-02] MEDS ORDERED: IV NORMAL SALINE 250 ML IV PRN (02:15)
[2023-03-02 05:06] LABS: BASOPHILS % (AUTO) 0.5 % (0.0-2.0); EOSINOPHILS # (AUTO) 0.1 K/uL (0.0-0.7); HEMATOCRIT 27.4 % (31.2-41.9); HEMOGLOBIN 8.9 g/dL (10.9-14.3); LYMPHOCYTES # (AUTO) 0.7 K/uL (0.8-4.8); MEAN CORPUSCULAR HGB CONC 33 g/dL (32.3-35.6); MEAN CORPUSCULAR VOLUME 98.4 fL (75.5-95.3); MONOCYTES # (AUTO) 0.5 K/uL (0.1-1.30); NEUTROPHILS # (AUTO) 4.4 K/uL (1.8-8.9); NEUTROPHILS % (AUTO) 76.5 % (38.5-71.5); PLATELET COUNT (AUTO) 122 K/uL (179-408); RED BLOOD CELL COUNT(AUTO) 2.79 MIL/uL (3.63-4.92); WHITE BLOOD COUNT (AUTO) 5.7 K/uL (3.8-11.8)
[2023-03-02 05:18] LABS: DIFFERENTIAL COMMENT 1
[2023-03-02 05:26] LABS: CARBON DIOXIDE 16 mmol/L (21-32); CHLORIDE 116 mmol/L (98-107); CREATININE 1.1 mg/dL (0.6-1.3); GLUCOSE 55 mg/dL (74-106); MAGNESIUM 1.9 mg/dL (1.8-2.4); PHOSPHOROUS 2.3 mg/dL (2.5-4.9); POTASSIUM 3.6 mmol/L (3.5-5.1); SODIUM SERUM 145 mmol/L (136-145); UREA NITROGEN, BLOOD 18 mg/dL (7-18)
[2023-03-02 05:31] LABS: CALCIUM 8.5 mg/dL (8.5-10.1)
[2023-03-02] MEDS: METHIMAZOLE 5 MG TABLET GT SCH ×3 (05:36→22:02)
[2023-03-02] MEDS: PANTOPRAZOLE ORAL SUSPENSION 40 MG SUSPDR.PKT GT SCH (06:13)
[2023-03-02] MEDS: ACIDOPHILUS/BULGARICUS CHEW TAB GT SCH ×2 (08:33→16:07)
[2023-03-02] MEDS: ZINC SULFATE 220 MG CAPSULE GT SCH (08:33)
[2023-03-02] MEDS: ASCORBIC ACID 500 MG TABLET GT SCH (08:34)
[2023-03-02] MEDS ORDERED: JEVITY 1.2 1000 ML LIQUID GT PRN ×2 (10:15→14:36)
[2023-03-02] MEDS: CEFEPIME HCL 2 G in IV DEXTROSE 5% 100 ML IV SCH (10:16)
[2023-03-02] MEDS ORDERED: NEUTRA PHOS PACKET PO ONE (15:40)
[2023-03-02] MEDS ORDERED: NEUTRA PHOS PACKET GT ONE (15:40)
[2023-03-02] MEDS: MICAFUNGIN SODIUM 100 MG in IV NORMAL SALINE 100 ML IV SCH (15:52)
[2023-03-02] MEDS: ATORVASTATIN 20 MG TABLET GT SCH (20:43)
[2023-03-02] MEDS: QUETIAPINE FUMARATE 25 MG TABLET GT SCH (20:43)
[2023-03-02] MEDS: MELATONIN 3 MG TABLET GT SCH (20:44)
[2023-03-03] VITALS (23 sets, daily range): BP systolic 93–134; BP diastolic 46–85; TEMP 97.5–98.5; O2SAT 100
[2023-03-03] MEDS: IPRATROPIUM BROMIDE 0.5 MG/2.5 ML NEBU NEB SCH ×4 (01:30→19:44)
[2023-03-03] MEDS: ALBUTEROL SULFATE 2.5 MG/ 0.5 ML NEBU IH SCH ×4 (01:30→19:44)
[2023-03-03 05:03] LABS: BASOPHILS # (AUTO) 0.1 K/UL (0.0-0.2); BASOPHILS % (AUTO) 0.7 % (0.0-2.0); EOSINOPHILS # (AUTO) 0.1 K/uL (0.0-0.7); EOSINOPHILS % (AUTO) 0.9 % (0.0-7.0); HEMATOCRIT 29.2 % (31.2-41.9); HEMOGLOBIN 9.4 g/dL (10.9-14.3); LYMPHOCYTES # (AUTO) 1.2 K/uL (0.8-4.8); LYMPHOCYTES % (AUTO) 14.8 % (20.5-51.5); MEAN CORPUSCULAR HEMOGLOBIN 31.8 uug (24.7-32.8); MEAN CORPUSCULAR HGB CONC 32 g/dL (32.3-35.6); MEAN CORPUSCULAR VOLUME 98.3 fL (75.5-95.3); MONOCYTES # (AUTO) 0.6 K/uL (0.1-1.30); MONOCYTES % (AUTO) 7.9 % (0.0-11.0); NEUTROPHILS # (AUTO) 6.2 K/uL (1.8-8.9); NEUTROPHILS % (AUTO) 75.7 % (38.5-71.5); PLATELET COUNT (AUTO) 150 K/uL (179-408); RED BLOOD CELL COUNT(AUTO) 2.96 MIL/uL (3.63-4.92); RED CELL DISTRIBUTION WIDTH 20.7 % (12.3-17.7); WHITE BLOOD COUNT (AUTO) 8.2 K/uL (3.8-11.8)
[2023-03-03 05:05] LABS: DIFFERENTIAL COMMENT 1
[2023-03-03 05:17] LABS: CALCIUM 8.4 mg/dL (8.5-10.1); CARBON DIOXIDE 20 mmol/L (21-32); CHLORIDE 115 mmol/L (98-107); CREATININE 1.2 mg/dL (0.6-1.3); GLUCOSE 145 mg/dL (74-106); MAGNESIUM 1.9 mg/dL (1.8-2.4); PHOSPHOROUS 2.3 mg/dL (2.5-4.9); POTASSIUM 3.8 mmol/L (3.5-5.1); SODIUM SERUM 145 mmol/L (136-145); UREA NITROGEN, BLOOD 19 mg/dL (7-18)
[2023-03-03] MEDS: METHIMAZOLE 5 MG TABLET GT SCH ×3 (06:19→21:00)
[2023-03-03] MEDS: PANTOPRAZOLE ORAL SUSPENSION 40 MG SUSPDR.PKT GT SCH (06:19)
[2023-03-03] MEDS ORDERED: POTASSIUM CHLORIDE 20 MEQ POWDER PACKET GT ONE (07:45)
[2023-03-03] MEDS ORDERED: METOPROLOL SUCCINATE XL 25 MG TAB.SR.24H PO SCH ×2 (09:00)
[2023-03-03] MEDS: ZINC SULFATE 220 MG CAPSULE GT SCH (09:14)
[2023-03-03] MEDS: ASCORBIC ACID 500 MG TABLET GT SCH (09:15)
[2023-03-03] MEDS: METOPROLOL TARTRATE 25 MG TABLET GT SCH ×2 (09:15→20:32)
[2023-03-03] MEDS: ACIDOPHILUS/BULGARICUS CHEW TAB GT SCH ×2 (09:17→16:48)
[2023-03-03] MEDS: MAGNESIUM SULFATE/D5W 100 ML IV SCH ×2 (09:18→10:19)
[2023-03-03] MEDS: CEFEPIME HCL 2 G in IV DEXTROSE 5% 100 ML IV SCH (09:19)
[2023-03-03] MEDS ORDERED: NEUTRA PHOS PACKET GT ONE (15:15)
[2023-03-03] MEDS: MICAFUNGIN SODIUM 100 MG in IV NORMAL SALINE 100 ML IV SCH (15:17)
[2023-03-03] MEDS: MORPHINE SULFATE 2 MG/1 ML DISP.SYRIN IV PRN (15:18)
[2023-03-03] MEDS: LORAZEPAM 0.5 MG TABLET GT PRN (16:49)
[2023-03-03] MEDS: QUETIAPINE FUMARATE 25 MG TABLET GT SCH (20:31)
[2023-03-03] MEDS: MELATONIN 3 MG TABLET GT SCH (20:33)
[2023-03-03] MEDS: ATORVASTATIN 20 MG TABLET GT SCH (20:33)
[2023-03-03] MEDS ORDERED: CEFEPIME HCL 2 G in IV DEXTROSE 5% 100 ML IV SCH (22:00)
[2023-03-04] VITALS (14 sets, daily range): BP systolic 93–121; BP diastolic 31–66; TEMP 97.4–98; O2SAT 100
[2023-03-04] MEDS: IPRATROPIUM BROMIDE 0.5 MG/2.5 ML NEBU NEB SCH ×4 (00:51→21:22)
[2023-03-04] MEDS: ALBUTEROL SULFATE 2.5 MG/ 0.5 ML NEBU IH SCH ×4 (00:51→21:23)
[2023-03-04 05:15] LABS: BASOPHILS % (AUTO) 0.6 % (0.0-2.0); EOSINOPHILS % (AUTO) 0.5 % (0.0-7.0); HEMATOCRIT 27.2 % (31.2-41.9); HEMOGLOBIN 8.9 g/dL (10.9-14.3); LYMPHOCYTES # (AUTO) 0.8 K/uL (0.8-4.8); LYMPHOCYTES % (AUTO) 11.2 % (20.5-51.5); MEAN CORPUSCULAR HEMOGLOBIN 32.5 uug (24.7-32.8); MEAN CORPUSCULAR HGB CONC 33 g/dL (32.3-35.6); MEAN CORPUSCULAR VOLUME 99.6 fL (75.5-95.3); MONOCYTES # (AUTO) 0.6 K/uL (0.1-1.30); MONOCYTES % (AUTO) 8.2 % (0.0-11.0); NEUTROPHILS # (AUTO) 5.4 K/uL (1.8-8.9); NEUTROPHILS % (AUTO) 79.5 % (38.5-71.5); PLATELET COUNT (AUTO) 142 K/uL (179-408); RED BLOOD CELL COUNT(AUTO) 2.73 MIL/uL (3.63-4.92); WHITE BLOOD COUNT (AUTO) 6.8 K/uL (3.8-11.8)
[2023-03-04 05:30] LABS: CALCIUM 8.8 mg/dL (8.5-10.1); CARBON DIOXIDE 19 mmol/L (21-32); CHLORIDE 117 mmol/L (98-107); CREATININE 1.1 mg/dL (0.6-1.3); DIFFERENTIAL COMMENT 1; GLUCOSE 105 mg/dL (74-106); MAGNESIUM 2.4 mg/dL (1.8-2.4); POTASSIUM 4.5 mmol/L (3.5-5.1); RED CELL DISTRIBUTION WIDTH 19.1 % (12.3-17.7); SODIUM SERUM 145 mmol/L (136-145); UREA NITROGEN, BLOOD 19 mg/dL (7-18)
[2023-03-04] MEDS: METHIMAZOLE 5 MG TABLET GT SCH ×3 (05:35→21:30)
[2023-03-04] MEDS: PANTOPRAZOLE ORAL SUSPENSION 40 MG SUSPDR.PKT GT SCH (05:35)
[2023-03-04] MEDS: ACIDOPHILUS/BULGARICUS CHEW TAB GT SCH ×2 (08:14→16:39)
[2023-03-04] MEDS: ASCORBIC ACID 500 MG TABLET GT SCH (08:15)
[2023-03-04] MEDS: METOPROLOL TARTRATE 25 MG TABLET GT SCH ×2 (08:15→21:10)
[2023-03-04] MEDS: ZINC SULFATE 220 MG CAPSULE GT SCH (08:16)
[2023-03-04] MEDS: ONDANSETRON 4 MG/2 ML VIAL IV PRN (09:29)
[2023-03-04] MEDS: VITAL AF 1.2 1,000 ML LIQUID GT PRN (11:19)
[2023-03-04] MEDS: MICAFUNGIN SODIUM 100 MG in IV NORMAL SALINE 100 ML IV SCH (15:41)
[2023-03-04] MEDS: ATORVASTATIN 20 MG TABLET GT SCH (21:08)
[2023-03-04] MEDS: QUETIAPINE FUMARATE 25 MG TABLET GT SCH (21:09)
[2023-03-04] MEDS: MELATONIN 3 MG TABLET GT SCH (21:10)
[2023-03-05] VITALS: BP 101/60; TEMP 97.8; O2SAT 100
[2023-03-05] MEDS: IPRATROPIUM BROMIDE 0.5 MG/2.5 ML NEBU NEB SCH ×4 (02:26→19:09)
[2023-03-05] MEDS: ALBUTEROL SULFATE 2.5 MG/ 0.5 ML NEBU IH SCH ×4 (02:27→19:09)
[2023-03-05] MEDS: LORAZEPAM 0.5 MG TABLET GT PRN ×2 (02:45→14:59)
[2023-03-05 04:00] VITALS: BP 97/56; TEMP 98; O2SAT 100
[2023-03-05 05:02] LABS: BASOPHILS % (AUTO) 0.7 % (0.0-2.0); EOSINOPHILS % (AUTO) 0.7 % (0.0-7.0); HEMATOCRIT 28.6 % (31.2-41.9); HEMOGLOBIN 9.6 g/dL (10.9-14.3); LYMPHOCYTES # (AUTO) 0.7 K/uL (0.8-4.8); LYMPHOCYTES % (AUTO) 11.1 % (20.5-51.5); MEAN CORPUSCULAR HEMOGLOBIN 33.7 uug (24.7-32.8); MEAN CORPUSCULAR HGB CONC 33 g/dL (32.3-35.6); MEAN CORPUSCULAR VOLUME 100.9 fL (75.5-95.3); MONOCYTES # (AUTO) 0.6 K/uL (0.1-1.30); MONOCYTES % (AUTO) 8.9 % (0.0-11.0); NEUTROPHILS # (AUTO) 5.1 K/uL (1.8-8.9); NEUTROPHILS % (AUTO) 78.6 % (38.5-71.5); PLATELET COUNT (AUTO) 162 K/uL (179-408); RED BLOOD CELL COUNT(AUTO) 2.83 MIL/uL (3.63-4.92); RED CELL DISTRIBUTION WIDTH 23.6 % (12.3-17.7); WHITE BLOOD COUNT (AUTO) 6.5 K/uL (3.8-11.8)
[2023-03-05 05:31] LABS: DIFFERENTIAL COMMENT 1
[2023-03-05 05:33] LABS: CALCIUM 8.9 mg/dL (8.5-10.1); CARBON DIOXIDE 20 mmol/L (21-32); CHLORIDE 116 mmol/L (98-107); CREATININE 1.1 mg/dL (0.6-1.3); GLUCOSE 132 mg/dL (74-106); POTASSIUM 4.4 mmol/L (3.5-5.1); SODIUM SERUM 142 mmol/L (136-145); UREA NITROGEN, BLOOD 23 mg/dL (7-18)
[2023-03-05 05:36] LABS: MAGNESIUM 2.3 mg/dL (1.8-2.4); PHOSPHOROUS 2.4 mg/dL (2.5-4.9)
[2023-03-05 06:27] LABS: ABG BASE EXCESS -7.4 mmol/L (-2.0-2.0); ABG HCO3 16.2 mmol/L (22.0-26.0); ABG PCO2 26.8 mmHg (35.0-48.0); ABG PH 7.398 (7.340-7.440); ABG PO2 130.8 mmHg (75.0-100.0); ABG SITE RIGHT RADIAL; AaDO2 98.7 mmHg; COHb 0.4 % (0.0-3.9); MetHb 0.2 % (0.0-1.5); O2Hb 98.2 % (94.0-97.0); VT, ABG 400 mL
[2023-03-05] MEDS: PANTOPRAZOLE ORAL SUSPENSION 40 MG SUSPDR.PKT GT SCH (06:32)
[2023-03-05] MEDS: METHIMAZOLE 5 MG TABLET GT SCH ×3 (06:33→21:51)
[2023-03-05 08:00] VITALS: BP 118/75; TEMP 97.8; O2SAT 99
[2023-03-05] MEDS: ZINC SULFATE 220 MG CAPSULE GT SCH (09:40)
[2023-03-05] MEDS: ASCORBIC ACID 500 MG TABLET GT SCH (09:40)
[2023-03-05] MEDS: METOPROLOL TARTRATE 25 MG TABLET GT SCH ×2 (09:41→21:16)
[2023-03-05] MEDS: ACIDOPHILUS/BULGARICUS CHEW TAB GT SCH ×2 (09:42→16:39)
[2023-03-05] MEDS: ONDANSETRON 4 MG/2 ML VIAL IV PRN ×2 (12:02→18:50)
[2023-03-05 12:04] VITALS: BP 102/55; TEMP 99.2; O2SAT 99
[2023-03-05] MEDS: MICAFUNGIN SODIUM 100 MG in IV NORMAL SALINE 100 ML IV SCH (15:35)
[2023-03-05] MEDS ORDERED: NEUTRA PHOS PACKET GT ONE (15:50)
[2023-03-05] MEDS ORDERED: NEUTRA PHOS PACKET PO ONE (15:50)
[2023-03-05 16:00] VITALS: BP 92/54; TEMP 98.5; O2SAT 99
[2023-03-05] MEDS: VITAL AF 1.2 1,000 ML LIQUID GT PRN (16:24)
[2023-03-05 20:00] VITALS: BP 102/59; TEMP 98.1; O2SAT 100
[2023-03-05] MEDS ORDERED: APIXABAN 2.5 MG TABLET PO SCH (21:00)
[2023-03-05] MEDS: APIXABAN 2.5 MG TABLET PO SCH (21:08)
[2023-03-05] MEDS: MELATONIN 3 MG TABLET GT SCH (21:09)
[2023-03-05] MEDS: QUETIAPINE FUMARATE 25 MG TABLET GT SCH (21:10)
[2023-03-05] MEDS: ATORVASTATIN 20 MG TABLET GT SCH (21:18)
[2023-03-06 00:01] VITALS: BP 94/55; TEMP 98; O2SAT 100
[2023-03-06] MEDS: IPRATROPIUM BROMIDE 0.5 MG/2.5 ML NEBU NEB SCH ×4 (02:05→19:04)
[2023-03-06] MEDS: ALBUTEROL SULFATE 2.5 MG/ 0.5 ML NEBU IH SCH ×4 (02:06→19:04)
[2023-03-06 04:00] VITALS: BP 94/55; TEMP 98; O2SAT 100
[2023-03-06 05:12] LABS: BASOPHILS # (AUTO) 0.1 K/UL (0.0-0.2); BASOPHILS % (AUTO) 0.5 % (0.0-2.0); EOSINOPHILS # (AUTO) 0.1 K/uL (0.0-0.7); EOSINOPHILS % (AUTO) 0.7 % (0.0-7.0); HEMATOCRIT 27.6 % (31.2-41.9); HEMOGLOBIN 8.9 g/dL (10.9-14.3); LYMPHOCYTES # (AUTO) 0.7 K/uL (0.8-4.8); LYMPHOCYTES % (AUTO) 6.6 % (20.5-51.5); MEAN CORPUSCULAR HEMOGLOBIN 32.6 uug (24.7-32.8); MEAN CORPUSCULAR HGB CONC 32 g/dL (32.3-35.6); MEAN CORPUSCULAR VOLUME 101.1 fL (75.5-95.3); MONOCYTES # (AUTO) 0.6 K/uL (0.1-1.30); MONOCYTES % (AUTO) 5.7 % (0.0-11.0); NEUTROPHILS # (AUTO) 9.5 K/uL (1.8-8.9); NEUTROPHILS % (AUTO) 86.5 % (38.5-71.5); PLATELET COUNT (AUTO) 175 K/uL (179-408); RED BLOOD CELL COUNT(AUTO) 2.73 MIL/uL (3.63-4.92); RED CELL DISTRIBUTION WIDTH 23.4 % (12.3-17.7)
[2023-03-06 05:54] LABS: CALCIUM 8.7 mg/dL (8.5-10.1); CARBON DIOXIDE 19 mmol/L (21-32); CHLORIDE 117 mmol/L (98-107); CREATININE 1.2 mg/dL (0.6-1.3); DIFFERENTIAL COMMENT 1; GLUCOSE 149 mg/dL (74-106); POTASSIUM 3.8 mmol/L (3.5-5.1); SODIUM SERUM 147 mmol/L (136-145); UREA NITROGEN, BLOOD 27 mg/dL (7-18)
[2023-03-06] MEDS: METHIMAZOLE 5 MG TABLET GT SCH ×3 (06:22→21:44)
[2023-03-06] MEDS: PANTOPRAZOLE ORAL SUSPENSION 40 MG SUSPDR.PKT GT SCH (06:24)
[2023-03-06 08:00] VITALS: BP 105/54; TEMP 97.8; O2SAT 100
[2023-03-06] MEDS: ZINC SULFATE 220 MG CAPSULE GT SCH (09:04)
[2023-03-06] MEDS: ACIDOPHILUS/BULGARICUS CHEW TAB GT SCH ×2 (09:04→16:09)
[2023-03-06] MEDS: ASCORBIC ACID 500 MG TABLET GT SCH (09:04)
[2023-03-06] MEDS: METOPROLOL TARTRATE 25 MG TABLET GT SCH ×2 (09:05→20:30)
[2023-03-06] MEDS: APIXABAN 2.5 MG TABLET PO SCH ×2 (09:06→20:31)
[2023-03-06 12:00] VITALS: BP 106/67; TEMP 98.1; O2SAT 100
[2023-03-06] MEDS ORDERED: NEUTRA PHOS PACKET GT ONE (15:30)
[2023-03-06] MEDS ORDERED: NEUTRA PHOS PACKET PO ONE (15:30)
[2023-03-06] MEDS: MICAFUNGIN SODIUM 100 MG in IV NORMAL SALINE 100 ML IV SCH (15:57)
[2023-03-06 16:00] VITALS: BP 99/46; TEMP 98.2; O2SAT 100
[2023-03-06 20:00] VITALS: BP 102/56; TEMP 98; O2SAT 100
[2023-03-06] MEDS: ATORVASTATIN 20 MG TABLET GT SCH (20:29)
[2023-03-06] MEDS: QUETIAPINE FUMARATE 25 MG TABLET GT SCH (20:29)
[2023-03-06] MEDS: MELATONIN 3 MG TABLET GT SCH (20:29)
[2023-03-06] MEDS: VITAL AF 1.2 1,000 ML LIQUID GT PRN (23:52)
[2023-03-07] VITALS: BP 95/50; TEMP 97; O2SAT 100
[2023-03-07] MEDS: IPRATROPIUM BROMIDE 0.5 MG/2.5 ML NEBU NEB SCH ×4 (01:15→19:04)
[2023-03-07] MEDS: ALBUTEROL SULFATE 2.5 MG/ 0.5 ML NEBU IH SCH ×4 (01:16→19:05)
[2023-03-07] MEDS: LORAZEPAM 0.5 MG TABLET GT PRN ×2 (03:01→21:58)
[2023-03-07] MEDS: PANTOPRAZOLE ORAL SUSPENSION 40 MG SUSPDR.PKT GT SCH (05:32)
[2023-03-07] MEDS: METHIMAZOLE 5 MG TABLET GT SCH ×3 (05:33→21:45)
[2023-03-07 06:03] LABS: BASOPHILS % (AUTO) 0.5 % (0.0-2.0); EOSINOPHILS # (AUTO) 0.2 K/uL (0.0-0.7); EOSINOPHILS % (AUTO) 2.1 % (0.0-7.0); HEMATOCRIT 28.2 % (31.2-41.9); HEMOGLOBIN 9.2 g/dL (10.9-14.3); LYMPHOCYTES # (AUTO) 0.8 K/uL (0.8-4.8); LYMPHOCYTES % (AUTO) 11.2 % (20.5-51.5); MEAN CORPUSCULAR HEMOGLOBIN 33.3 uug (24.7-32.8); MEAN CORPUSCULAR HGB CONC 33 g/dL (32.3-35.6); MEAN CORPUSCULAR VOLUME 102.3 fL (75.5-95.3); MONOCYTES # (AUTO) 0.6 K/uL (0.1-1.30); MONOCYTES % (AUTO) 7.5 % (0.0-11.0); NEUTROPHILS # (AUTO) 5.8 K/uL (1.8-8.9); NEUTROPHILS % (AUTO) 78.7 % (38.5-71.5); PLATELET COUNT (AUTO) 192 K/uL (179-408); RED BLOOD CELL COUNT(AUTO) 2.76 MIL/uL (3.63-4.92); RED CELL DISTRIBUTION WIDTH 24.1 % (12.3-17.7); WHITE BLOOD COUNT (AUTO) 7.3 K/uL (3.8-11.8)
[2023-03-07 06:12] LABS: DIFFERENTIAL COMMENT 1
[2023-03-07 06:34] LABS: CALCIUM 8.7 mg/dL (8.5-10.1); CARBON DIOXIDE 22 mmol/L (21-32); CHLORIDE 115 mmol/L (98-107); GLUCOSE 133 mg/dL (74-106); POTASSIUM 4.1 mmol/L (3.5-5.1); SODIUM SERUM 144 mmol/L (136-145); UREA NITROGEN, BLOOD 27 mg/dL (7-18)
[2023-03-07 08:00] VITALS: BP 99/50; TEMP 98.3; O2SAT 100
[2023-03-07] MEDS: METOPROLOL TARTRATE 25 MG TABLET GT SCH ×2 (09:00→21:44)
[2023-03-07] MEDS: APIXABAN 2.5 MG TABLET PO SCH ×2 (09:00→20:20)
[2023-03-07] MEDS: ACIDOPHILUS/BULGARICUS CHEW TAB GT SCH ×2 (09:31→17:12)
[2023-03-07] MEDS: ZINC SULFATE 220 MG CAPSULE GT SCH (09:31)
[2023-03-07] MEDS: ASCORBIC ACID 500 MG TABLET GT SCH (09:31)
[2023-03-07 12:00] VITALS: BP 99/37; TEMP 98.6; O2SAT 98
[2023-03-07] MEDS: ONDANSETRON 4 MG/2 ML VIAL IV PRN (15:34)
[2023-03-07] MEDS: MICAFUNGIN SODIUM 100 MG in IV NORMAL SALINE 100 ML IV SCH (15:36)
[2023-03-07 20:00] VITALS: BP 120/76; TEMP 98.5; O2SAT 100
[2023-03-07] MEDS: ATORVASTATIN 20 MG TABLET GT SCH (21:42)
[2023-03-07] MEDS: QUETIAPINE FUMARATE 25 MG TABLET GT SCH (21:45)
[2023-03-07] MEDS: MELATONIN 3 MG TABLET GT SCH (21:45)
[2023-03-08] VITALS (7 sets, daily range): BP systolic 98–148; BP diastolic 51–68; TEMP 98.1–98.4; O2SAT 95–100
[2023-03-08] MEDS: ALBUTEROL SULFATE 2.5 MG/ 0.5 ML NEBU IH SCH ×4 (01:38→19:30)
[2023-03-08] MEDS: IPRATROPIUM BROMIDE 0.5 MG/2.5 ML NEBU NEB SCH ×4 (01:38→19:30)
[2023-03-08] MEDS: TRAMADOL HCL 50 MG TABLET GT PRN (01:47)
[2023-03-08 05:51] LABS: BASOPHILS % (AUTO) 0.7 % (0.0-2.0); DIFFERENTIAL COMMENT 0; EOSINOPHILS # (AUTO) 0.1 K/uL (0.0-0.7); EOSINOPHILS % (AUTO) 1.9 % (0.0-7.0); HEMATOCRIT 26.7 % (31.2-41.9); HEMOGLOBIN 8.7 g/dL (10.9-14.3); LYMPHOCYTES # (AUTO) 0.7 K/uL (0.8-4.8); LYMPHOCYTES % (AUTO) 11.2 % (20.5-51.5); MEAN CORPUSCULAR HEMOGLOBIN 33.2 uug (24.7-32.8); MEAN CORPUSCULAR HGB CONC 33 g/dL (32.3-35.6); MEAN CORPUSCULAR VOLUME 101.5 fL (75.5-95.3); MONOCYTES # (AUTO) 0.5 K/uL (0.1-1.30); NEUTROPHILS # (AUTO) 5.2 K/uL (1.8-8.9); NEUTROPHILS % (AUTO) 78.2 % (38.5-71.5); PLATELET COUNT (AUTO) 217 K/uL (179-408); RED BLOOD CELL COUNT(AUTO) 2.63 MIL/uL (3.63-4.92); RED CELL DISTRIBUTION WIDTH 24.3 % (12.3-17.7); WHITE BLOOD COUNT (AUTO) 6.7 K/uL (3.8-11.8)
[2023-03-08 05:52] LABS: CALCIUM 8.7 mg/dL (8.5-10.1); CARBON DIOXIDE 21 mmol/L (21-32); CHLORIDE 115 mmol/L (98-107); GLUCOSE 101 mg/dL (74-106); POTASSIUM 4.2 mmol/L (3.5-5.1); SODIUM SERUM 144 mmol/L (136-145); UREA NITROGEN, BLOOD 26 mg/dL (7-18)
[2023-03-08] MEDS: PANTOPRAZOLE ORAL SUSPENSION 40 MG SUSPDR.PKT GT SCH (06:11)
[2023-03-08] MEDS: METHIMAZOLE 5 MG TABLET GT SCH ×3 (07:40→22:18)
[2023-03-08] MEDS: APIXABAN 2.5 MG TABLET PO SCH ×2 (09:00→21:00)
[2023-03-08] MEDS: ACIDOPHILUS/BULGARICUS CHEW TAB GT SCH ×2 (09:11→18:42)
[2023-03-08] MEDS: METOPROLOL TARTRATE 25 MG TABLET GT SCH ×2 (09:12→22:03)
[2023-03-08] MEDS: ASCORBIC ACID 500 MG TABLET GT SCH (09:16)
[2023-03-08] MEDS: ZINC SULFATE 220 MG CAPSULE GT SCH (09:16)
[2023-03-08] MEDS: VITAL AF 1.2 1,000 ML LIQUID GT PRN (10:58)
[2023-03-08] MEDS: MICAFUNGIN SODIUM 100 MG in IV NORMAL SALINE 100 ML IV SCH (15:33)
[2023-03-08] MEDS: LORAZEPAM 0.5 MG TABLET GT PRN (19:26)
[2023-03-08] MEDS: ATORVASTATIN 20 MG TABLET GT SCH (22:02)
[2023-03-08] MEDS: MELATONIN 3 MG TABLET GT SCH (22:04)
[2023-03-08] MEDS: QUETIAPINE FUMARATE 25 MG TABLET GT SCH (22:05)
[2023-03-09] MEDS: ALBUTEROL SULFATE 2.5 MG/ 0.5 ML NEBU IH SCH ×4 (00:58→19:15)
[2023-03-09] MEDS: IPRATROPIUM BROMIDE 0.5 MG/2.5 ML NEBU NEB SCH ×4 (00:58→19:15)
[2023-03-09] MEDS: TRAMADOL HCL 50 MG TABLET GT PRN (02:52)
[2023-03-09 04:00] VITALS: BP 126/53; TEMP 98; O2SAT 100
[2023-03-09] MEDS: PANTOPRAZOLE ORAL SUSPENSION 40 MG SUSPDR.PKT GT SCH (05:35)
[2023-03-09 07:18] LABS: BASOPHILS # (AUTO) 0.1 K/UL (0.0-0.2); BASOPHILS % (AUTO) 0.7 % (0.0-2.0); EOSINOPHILS # (AUTO) 0.1 K/uL (0.0-0.7); EOSINOPHILS % (AUTO) 1.8 % (0.0-7.0); HEMATOCRIT 26.6 % (31.2-41.9); HEMOGLOBIN 8.9 g/dL (10.9-14.3); LYMPHOCYTES # (AUTO) 0.8 K/uL (0.8-4.8); LYMPHOCYTES % (AUTO) 10.3 % (20.5-51.5); MEAN CORPUSCULAR HEMOGLOBIN 33.9 uug (24.7-32.8); MEAN CORPUSCULAR HGB CONC 34 g/dL (32.3-35.6); MEAN CORPUSCULAR VOLUME 101.1 fL (75.5-95.3); MONOCYTES # (AUTO) 0.7 K/uL (0.1-1.30); MONOCYTES % (AUTO) 9.2 % (0.0-11.0); NEUTROPHILS # (AUTO) 5.8 K/uL (1.8-8.9); PLATELET COUNT (AUTO) 237 K/uL (179-408); RED BLOOD CELL COUNT(AUTO) 2.63 MIL/uL (3.63-4.92); RED CELL DISTRIBUTION WIDTH 24.2 % (12.3-17.7); WHITE BLOOD COUNT (AUTO) 7.4 K/uL (3.8-11.8)
[2023-03-09 07:23] LABS: CALCIUM 8.7 mg/dL (8.5-10.1); CARBON DIOXIDE 21 mmol/L (21-32); CHLORIDE 111 mmol/L (98-107); CREATININE 0.9 mg/dL (0.6-1.3); GLUCOSE 132 mg/dL (74-106); SODIUM SERUM 139 mmol/L (136-145); UREA NITROGEN, BLOOD 27 mg/dL (7-18)
[2023-03-09 07:25] LABS: DIFFERENTIAL COMMENT 1
[2023-03-09] MEDS: METOPROLOL TARTRATE 25 MG TABLET GT SCH ×2 (09:00→21:08)
[2023-03-09] MEDS: METHIMAZOLE 5 MG TABLET GT SCH ×3 (09:32→22:00)
[2023-03-09] MEDS: ACIDOPHILUS/BULGARICUS CHEW TAB GT SCH ×2 (09:33→16:12)
[2023-03-09] MEDS: ZINC SULFATE 220 MG CAPSULE GT SCH (09:34)
[2023-03-09] MEDS: ASCORBIC ACID 500 MG TABLET GT SCH (09:34)
[2023-03-09] MEDS: APIXABAN 2.5 MG TABLET PO SCH (09:40)
[2023-03-09] MEDS: VITAL AF 1.2 1,000 ML LIQUID GT PRN (09:42)
[2023-03-09 09:50] VITALS: BP 98/66; TEMP 98.2; O2SAT 100
[2023-03-09 14:18] VITALS: BP 112/75; TEMP 98.2; O2SAT 100
[2023-03-09] MEDS: MICAFUNGIN SODIUM 100 MG in IV NORMAL SALINE 100 ML IV SCH (15:19)
[2023-03-09 16:00] VITALS: BP 98/62; TEMP 98.2; O2SAT 100
[2023-03-09 20:00] VITALS: BP 111/65; TEMP 98; O2SAT 100
[2023-03-09] MEDS: ATORVASTATIN 20 MG TABLET GT SCH (21:07)
[2023-03-09] MEDS: MELATONIN 3 MG TABLET GT SCH (21:09)
[2023-03-09] MEDS: QUETIAPINE FUMARATE 25 MG TABLET GT SCH (21:09)
[2023-03-10] VITALS (7 sets, daily range): BP systolic 92–128; BP diastolic 50–75; TEMP 97–102.9; O2SAT 99–100
[2023-03-10] MEDS: IPRATROPIUM BROMIDE 0.5 MG/2.5 ML NEBU NEB SCH ×4 (00:43→20:57)
[2023-03-10] MEDS: ALBUTEROL SULFATE 2.5 MG/ 0.5 ML NEBU IH SCH ×4 (00:43→20:57)
[2023-03-10] MEDS: ACETAMINOPHEN 650 MG/20.3 ML LIQUID UDC GT PRN ×2 (01:46→22:01)
[2023-03-10] MEDS: MORPHINE SULFATE 2 MG/1 ML DISP.SYRIN IV PRN (01:47)
[2023-03-10] MEDS: METHIMAZOLE 5 MG TABLET GT SCH ×3 (05:22→21:55)
[2023-03-10] MEDS: PANTOPRAZOLE ORAL SUSPENSION 40 MG SUSPDR.PKT GT SCH (05:23)
[2023-03-10 06:52] LABS: BASOPHILS % (AUTO) 0.5 % (0.0-2.0); EOSINOPHILS # (AUTO) 0.2 K/uL (0.0-0.7); EOSINOPHILS % (AUTO) 3.4 % (0.0-7.0); HEMATOCRIT 27.1 % (31.2-41.9); LYMPHOCYTES # (AUTO) 0.9 K/uL (0.8-4.8); LYMPHOCYTES % (AUTO) 14.2 % (20.5-51.5); MEAN CORPUSCULAR HEMOGLOBIN 33.9 uug (24.7-32.8); MEAN CORPUSCULAR HGB CONC 33 g/dL (32.3-35.6); MEAN CORPUSCULAR VOLUME 102.1 fL (75.5-95.3); MONOCYTES # (AUTO) 0.8 K/uL (0.1-1.30); NEUTROPHILS # (AUTO) 4.3 K/uL (1.8-8.9); NEUTROPHILS % (AUTO) 68.9 % (38.5-71.5); PLATELET COUNT (AUTO) 260 K/uL (179-408); RED BLOOD CELL COUNT(AUTO) 2.65 MIL/uL (3.63-4.92); RED CELL DISTRIBUTION WIDTH 25.4 % (12.3-17.7); WHITE BLOOD COUNT (AUTO) 6.3 K/uL (3.8-11.8)
[2023-03-10 07:14] LABS: CALCIUM 8.7 mg/dL (8.5-10.1); CARBON DIOXIDE 20 mmol/L (21-32); CHLORIDE 110 mmol/L (98-107); CREATININE 0.9 mg/dL (0.6-1.3); GLUCOSE 129 mg/dL (74-106); POTASSIUM 3.9 mmol/L (3.5-5.1); SODIUM SERUM 139 mmol/L (136-145); UREA NITROGEN, BLOOD 30 mg/dL (7-18)
[2023-03-10 07:19] LABS: DIFFERENTIAL COMMENT 1
[2023-03-10] MEDS: METOPROLOL TARTRATE 25 MG TABLET GT SCH ×2 (09:00→21:56)
[2023-03-10] MEDS ORDERED: SPIRONOLACTONE 50 MG TABLET PO SCH (09:00)
[2023-03-10] MEDS: SPIRONOLACTONE 50 MG TABLET GT SCH (10:06)
[2023-03-10] MEDS: FUROSEMIDE 40 MG TABLET GT SCH ×2 (10:06→16:27)
[2023-03-10] MEDS: ACIDOPHILUS/BULGARICUS CHEW TAB GT SCH ×2 (10:06→16:27)
[2023-03-10] MEDS: ASCORBIC ACID 500 MG TABLET GT SCH (10:07)
[2023-03-10] MEDS: ZINC SULFATE 220 MG CAPSULE GT SCH (10:07)
[2023-03-10] MEDS: MICAFUNGIN SODIUM 100 MG in IV NORMAL SALINE 100 ML IV SCH (15:16)
[2023-03-10] MEDS: LORAZEPAM 0.5 MG TABLET GT PRN (16:28)
[2023-03-10] MEDS: ATORVASTATIN 20 MG TABLET GT SCH (21:55)
[2023-03-10] MEDS: TRAMADOL HCL 50 MG TABLET GT PRN (21:56)
[2023-03-10] MEDS: QUETIAPINE FUMARATE 25 MG TABLET GT SCH (21:56)
[2023-03-10] MEDS: MELATONIN 3 MG TABLET GT SCH (21:57)
[2023-03-11] VITALS: BP 81/48; TEMP 99.8; O2SAT 99
[2023-03-11 03:46] LABS: TOTAL VOLUME,BODY FLUID 2695 mL
[2023-03-11] MEDS: IPRATROPIUM BROMIDE 0.5 MG/2.5 ML NEBU NEB SCH ×4 (03:53→19:38)
[2023-03-11] MEDS: ALBUTEROL SULFATE 2.5 MG/ 0.5 ML NEBU IH SCH ×4 (03:53→19:38)
[2023-03-11 04:47] VITALS: BP 82/48; TEMP 98.4; O2SAT 99
[2023-03-11 05:11] LABS: MONOCYTES,BODY FLUID 8 %; POLYNUCLEAR, BODY FLUID 52 % (0-25 %)
[2023-03-11] MEDS ORDERED: ALBUMIN HUMAN 25% 50 ML IV ONE (05:45)
[2023-03-11] MEDS: METHIMAZOLE 5 MG TABLET GT SCH ×3 (05:48→21:28)
[2023-03-11] MEDS: PANTOPRAZOLE ORAL SUSPENSION 40 MG SUSPDR.PKT GT SCH (05:48)
[2023-03-11 07:08] LABS: BASOPHILS # (AUTO) 0.1 K/UL (0.0-0.2); BASOPHILS % (AUTO) 0.5 % (0.0-2.0); EOSINOPHILS # (AUTO) 0.1 K/uL (0.0-0.7); EOSINOPHILS % (AUTO) 0.5 % (0.0-7.0); HEMATOCRIT 26.7 % (31.2-41.9); HEMOGLOBIN 8.9 g/dL (10.9-14.3); LYMPHOCYTES # (AUTO) 0.8 K/uL (0.8-4.8); LYMPHOCYTES % (AUTO) 8.1 % (20.5-51.5); MEAN CORPUSCULAR HEMOGLOBIN 33.6 uug (24.7-32.8); MEAN CORPUSCULAR HGB CONC 34 g/dL (32.3-35.6); MEAN CORPUSCULAR VOLUME 100.2 fL (75.5-95.3); MONOCYTES # (AUTO) 0.8 K/uL (0.1-1.30); MONOCYTES % (AUTO) 7.9 % (0.0-11.0); NEUTROPHILS # (AUTO) 8.2 K/uL (1.8-8.9); PLATELET COUNT (AUTO) 275 K/uL (179-408); RED BLOOD CELL COUNT(AUTO) 2.66 MIL/uL (3.63-4.92); RED CELL DISTRIBUTION WIDTH 24.5 % (12.3-17.7); WHITE BLOOD COUNT (AUTO) 9.9 K/uL (3.8-11.8)
[2023-03-11 07:35] LABS: ALANINE AMINOTRANSFERASE 29 U/L (14-59); ALBUMIN 1.8 g/dL (3.4-5.0); ALKALINE PHOSPHATASE 252 U/L (50-136); ASPARTATE AMINOTRANSFERASE 32 U/L (15-37); CALCIUM 8.8 mg/dL (8.5-10.1); CARBON DIOXIDE 21 mmol/L (21-32); CHLORIDE 106 mmol/L (98-107); CREATININE 1.1 mg/dL (0.6-1.3); GLUCOSE 100 mg/dL (74-106); POTASSIUM 3.6 mmol/L (3.5-5.1); SODIUM SERUM 135 mmol/L (136-145); TOTAL PROTEIN, SERUM 6.2 g/dL (6.4-8.2); UREA NITROGEN, BLOOD 29 mg/dL (7-18)
[2023-03-11 07:41] LABS: DIFFERENTIAL COMMENT 1
[2023-03-11 08:00] VITALS: BP 87/56; TEMP 98.8; O2SAT 99
[2023-03-11] MEDS ORDERED: APIXABAN 2.5 MG TABLET PO SCH (09:00)
[2023-03-11] MEDS: SPIRONOLACTONE 50 MG TABLET GT SCH (09:00)
[2023-03-11] MEDS: FUROSEMIDE 40 MG TABLET GT SCH ×2 (09:00→16:29)
[2023-03-11] MEDS: METOPROLOL TARTRATE 25 MG TABLET GT SCH ×2 (09:00→20:43)
[2023-03-11] MEDS: VITAL AF 1.2 1,000 ML LIQUID GT PRN (09:26)
[2023-03-11] MEDS: APIXABAN 2.5 MG TABLET PO SCH ×2 (09:49→20:46)
[2023-03-11] MEDS: ASCORBIC ACID 500 MG TABLET GT SCH (09:50)
[2023-03-11] MEDS: ACIDOPHILUS/BULGARICUS CHEW TAB GT SCH ×2 (09:50→16:29)
[2023-03-11] MEDS: ZINC SULFATE 220 MG CAPSULE GT SCH (09:50)
[2023-03-11 12:40] VITALS: BP 92/53; TEMP 98.6; O2SAT 99
[2023-03-11 16:04] VITALS: BP 92/55; TEMP 98.5; O2SAT 99
[2023-03-11] MEDS: MICAFUNGIN SODIUM 100 MG in IV NORMAL SALINE 100 ML IV SCH (16:28)
[2023-03-11] MEDS ORDERED: VITAL AF 1.2 1,000 ML LIQUID GT PRN (16:39)
[2023-03-11 20:15] VITALS: BP 97/48; TEMP 98.3; O2SAT 99
[2023-03-11] MEDS: ATORVASTATIN 20 MG TABLET GT SCH (20:41)
[2023-03-11] MEDS: MELATONIN 3 MG TABLET GT SCH (20:41)
[2023-03-11] MEDS: QUETIAPINE FUMARATE 25 MG TABLET GT SCH (20:42)
[2023-03-11] MEDS: TRAMADOL HCL 50 MG TABLET GT PRN (21:33)
[2023-03-11] MEDS: MORPHINE SULFATE 2 MG/1 ML DISP.SYRIN IV PRN (22:00)
[2023-03-12 00:09] VITALS: BP 98/50; TEMP 97.7; O2SAT 98
[2023-03-12] MEDS: IPRATROPIUM BROMIDE 0.5 MG/2.5 ML NEBU NEB SCH ×4 (00:49→19:57)
[2023-03-12] MEDS: ALBUTEROL SULFATE 2.5 MG/ 0.5 ML NEBU IH SCH ×4 (00:49→19:57)
[2023-03-12 04:10] VITALS: BP 91/54; TEMP 97.8; O2SAT 97
[2023-03-12] MEDS: METHIMAZOLE 5 MG TABLET GT SCH ×2 (05:18→13:54)
[2023-03-12] MEDS: PANTOPRAZOLE ORAL SUSPENSION 40 MG SUSPDR.PKT GT SCH (05:18)
[2023-03-12] MEDS ORDERED: VITAL AF 1.2 1,000 ML LIQUID GT PRN (07:06)
[2023-03-12 07:26] LABS: BASOPHILS % (AUTO) 0.2 % (0.0-2.0); EOSINOPHILS # (AUTO) 0.2 K/uL (0.0-0.7); EOSINOPHILS % (AUTO) 2.1 % (0.0-7.0); HEMATOCRIT 25.7 % (31.2-41.9); HEMOGLOBIN 8.6 g/dL (10.9-14.3); LYMPHOCYTES # (AUTO) 0.6 K/uL (0.8-4.8); MEAN CORPUSCULAR HEMOGLOBIN 33.5 uug (24.7-32.8); MEAN CORPUSCULAR HGB CONC 34 g/dL (32.3-35.6); MEAN CORPUSCULAR VOLUME 99.5 fL (75.5-95.3); MONOCYTES # (AUTO) 0.7 K/uL (0.1-1.30); MONOCYTES % (AUTO) 8.9 % (0.0-11.0); NEUTROPHILS # (AUTO) 6.1 K/uL (1.8-8.9); NEUTROPHILS % (AUTO) 80.8 % (38.5-71.5); PLATELET COUNT (AUTO) 289 K/uL (179-408); RED BLOOD CELL COUNT(AUTO) 2.58 MIL/uL (3.63-4.92); RED CELL DISTRIBUTION WIDTH 23.4 % (12.3-17.7); WHITE BLOOD COUNT (AUTO) 7.6 K/uL (3.8-11.8)
[2023-03-12 07:38] LABS: DIFFERENTIAL COMMENT 1
[2023-03-12 07:57] LABS: ALANINE AMINOTRANSFERASE 21 U/L (14-59); ALBUMIN 1.6 g/dL (3.4-5.0); ALKALINE PHOSPHATASE 229 U/L (50-136); ASPARTATE AMINOTRANSFERASE 14 U/L (15-37); BILIRUBIN,TOTAL 1.9 mg/dL (0.2-1.0); CALCIUM 9.1 mg/dL (8.5-10.1); CARBON DIOXIDE 22 mmol/L (21-32); CHLORIDE 104 mmol/L (98-107); GLUCOSE 77 mg/dL (74-106); POTASSIUM 3.3 mmol/L (3.5-5.1); SODIUM SERUM 135 mmol/L (136-145); UREA NITROGEN, BLOOD 26 mg/dL (7-18)
[2023-03-12] MEDS: ACIDOPHILUS/BULGARICUS CHEW TAB GT SCH ×2 (08:35→16:44)
[2023-03-12] MEDS: ASCORBIC ACID 500 MG TABLET GT SCH (08:35)
[2023-03-12] MEDS: FUROSEMIDE 40 MG TABLET GT SCH ×2 (08:35→16:44)
[2023-03-12] MEDS: METOPROLOL TARTRATE 25 MG TABLET GT SCH (08:38)
[2023-03-12] MEDS: SPIRONOLACTONE 50 MG TABLET GT SCH (08:39)
[2023-03-12] MEDS: ZINC SULFATE 220 MG CAPSULE GT SCH (08:39)
[2023-03-12] MEDS: APIXABAN 2.5 MG TABLET PO SCH (08:40)
[2023-03-12] MEDS ORDERED: POTASSIUM CHLORIDE 20 MEQ POWDER PACKET GT ONE (09:00)
[2023-03-12 11:30] VITALS: BP 99/64; TEMP 98.1; O2SAT 99
[2023-03-12] MEDS: ONDANSETRON 4 MG/2 ML VIAL IV PRN (11:35)
[2023-03-12 16:38] VITALS: BP 95/56; TEMP 98.2; O2SAT 98
[2023-03-12] MEDS: LORAZEPAM 0.5 MG TABLET GT PRN (17:52)
[2023-03-12 20:10] VITALS: BP 95/61; TEMP 98.5; O2SAT 98
== END 2023-03-12 20:55 | DRG 720 ==
LOC: ER 18:29 → CCU 21:02 → TELE-TD3 03-08 21:30 → TELE3 03-11 10:48 → MEDSURG3 03-12 10:10
PROVIDERS: ADMIT Internal Medicine; ATTEND Internal Medicine
PROC: 5A1955Z Respiratory Ventilation, Greater than 96 Consecutive Hours (ICD-10-PCS; principal; 2023-02-23)
PROC: 0W9G3ZZ Drainage of Peritoneal Cavity, Percutaneous Approach (ICD-10-PCS; 2023-02-26)
PROC: 30233K1 Transfusion of Nonautologous Frozen Plasma into Peripheral Vein, Percutaneous Approach (ICD-10-PCS; 2023-02-27)
PROC: 30233N1 Transfusion of Nonautologous Red Blood Cells into Peripheral Vein, Percutaneous Approach (ICD-10-PCS; 2023-02-27)
PROC: 05H933Z Insertion of Infusion Device into Right Brachial Vein, Percutaneous Approach (ICD-10-PCS; 2023-03-06)
DX: A41.9 Sepsis, unspecified organism (principal); N17.0 Acute kidney failure with tubular necrosis; J96.21 Acute and chronic respiratory failure with hypoxia; G92.8 Other toxic encephalopathy; K66.1 Hemoperitoneum; E44.0 Moderate protein-calorie malnutrition; B49 Unspecified mycosis; J18.9 Pneumonia, unspecified organism; S36.81XA Injury of peritoneum, initial encounter; I27.20 Pulmonary hypertension, unspecified; I48.0 Paroxysmal atrial fibrillation; N39.0 Urinary tract infection, site not specified; D62 Acute posthemorrhagic anemia; Y84.4 Aspiration of fluid as the cause of abnormal reaction of the patient, or of later complication, without mention of misadventure at the time of the procedure; Y78.1 Therapeutic (nonsurgical) and rehabilitative radiological devices associated with adverse incidents; Y92.238 Other place in hospital as the place of occurrence of the external cause; Z68.23 Body mass index [BMI] 23.0-23.9, adult; E88.09 Other disorders of plasma-protein metabolism, not elsewhere classified; F41.9 Anxiety disorder, unspecified; F20.9 Schizophrenia, unspecified; I45.10 Unspecified right bundle-branch block; I25.10 Atherosclerotic heart disease of native coronary artery without angina pectoris; I08.2 Rheumatic disorders of both aortic and tricuspid valves; E03.9 Hypothyroidism, unspecified; E05.90 Thyrotoxicosis, unspecified without thyrotoxic crisis or storm; E87.1 Hypo-osmolality and hyponatremia; K74.60 Unspecified cirrhosis of liver; K76.6 Portal hypertension; N18.9 Chronic kidney disease, unspecified; N20.0 Calculus of kidney; N31.9 Neuromuscular dysfunction of bladder, unspecified; Z93.1 Gastrostomy status; I69.320 Aphasia following cerebral infarction; I69.391 Dysphagia following cerebral infarction; R13.12 Dysphagia, oropharyngeal phase; Z79.01 Long term (current) use of anticoagulants; Z88.8 Allergy status to other drugs, medicaments and biological substances; Z91.011 Allergy to milk products; K57.30 Diverticulosis of large intestine without perforation or abscess without bleeding; R18.8 Other ascites; I47.10 Supraventricular tachycardia, unspecified; I42.9 Cardiomyopathy, unspecified; E87.5 Hyperkalemia; E87.20 Acidosis, unspecified; E78.5 Hyperlipidemia, unspecified; E86.0 Dehydration; E11.22 Type 2 diabetes mellitus with diabetic chronic kidney disease; Z99.11 Dependence on respirator [ventilator] status; E87.6 Hypokalemia; D25.9 Leiomyoma of uterus, unspecified
CPT/HCPCS: 36415; 36600; 70450; 71045; 74018; 76700; 78445; 82105; 82803; 83605; 83615; 83735; 83986; 84100; 84443; 84484; 85018; 85025; 85610; 86850; 86900; 86901; 86920; 87040; 93005; 93307; 94003; 94640; 94664; 94760; 99082-TC; A4606; A4663; A6209; A6213; A9537; C9113; G0378; J0692; J1650; J1956; J2060; J2248; J2270; J2405; J2543; J3370; J3430; J3475; J3490; J3590; J7040; J7050; J7120; P9016; P9047; P9059